=== PATIENT | male | born 1990 | race Caucasian/White ===

== ENCOUNTER 2020-12-07 17:25 | Emergency (ER) | payer SELFPAY ==
[2020-12-07 17:36] VITALS: BP 114/80; PULSE 91; RESP 18; TEMP 36.7; O2SAT 98; BMI 29.5
--- NOTE | 2020-12-07 17:40 | ED_ITS ---
HPI - Extremity Injury (Upper) General: Chief Complaint: Wound/Laceration Stated Complaint: HAND AND FINGER LAC Time Seen by Provider: 12/07/20 17:40 History of Present Illness: HPI narrative: 30-year-old male patient comes in today with injury to the right hand. Patient reports that him and a friend was moving some furniture and he slipped causing him to fall forward and put his hand through a window. Patient has some lacerations to the dorsal hand. Pat ient has good range of motion of the hand. Patient reports has tetanus shot is up-to-date. Patient denies any other concerns or issues. Review of Systems General: Reports: 10 or more systems reviewed and unremarkable except in HPI and below Skin/Breast: Reports: other (laceration right hand) Physical Exam Const: COMMON NORMALS: no acute distress and patient oriented x3 GENERAL APPEARANCE: cooperative HENMT: COMMON NORMALS: normocephalic and Normal external nose present HEAD & SCALP: normal to inspection and normocephalic NOSE: Normal external nose present Eye: GENERAL EYE: appearance normal, both eyes and all related structures Neck/C-Spine: COMMON NORMALS: full ROM Lymph: LYMPHATIC: no lymphadenopathy noted Chest: COMMONS NORMALS: normal inspection of the chest Resp: COMMON NORMALS: normal respiratory effort EFFORT & INSPECTION: Yes able to speak in complete sentences Cardio: COMMON NORMALS: regular rate and regular rhythm RATE: regular rate RHYTHM: regular rhythm GI: COMMON NORMALS: non-tender Extremity: NARRATIVE EXTREMITY EXAM: lacerations right hand Neuro: COMMON NORMALS: patient oriented x3 and moves all extremities Psych: COMMON NORMALS: mental status grossly normal and cooperative Skin: NARRATIVE SKIN EXAM: 3 cm laceration right dorsal hand, multiple superficial lacerations to index, middle, and ring finger Procedures Laceration Laceration 1: Site: hand Side (If applicable): right Size (cm): 3 Description: linear Depth: simple, single layer Local Anesthetic: lidocaine 1% and with epi Amount of anesthesia used (mL): 3 Pre-repair: wound explored and irrigated extensively Skin layer closed with: nylon Size (cm): 5-0 Number of sutures: 3 Technique: horizontal mattress Course Vital Signs: Vital signs: Vital Signs Temperature 98.0 F 12/07/20 17:36 Pulse Rate 91 12/07/20 17:36 Respiratory Rate 18 12/07/20 17:36 Blood Pressure 114/80 12/07/20 17:36 Pulse Oximetry 98 12/07/20 17:36 MDM - Extremity Injury (Upper) MDM Narrative: Medical decision making narrative: Patient comes in for injury to the right hand. On exam patient has several superficial lacerations to the fingers of the hand and a more significant laceration to the dorsal hand. Examination of the wound indicated no foreign body. Patient had good range of motion of the hand without any deficits in the tendons. Distal sensation and cap refill was intact. Differential diagnosis is to consider was laceration, tendon injury, foreign body, need for prophylaxis tetanus. Patient's tetanus vaccine was up-to-date. Wound was closed with 3 mattress sutures with well approximation. X-ray was performed indicating no foreign body or bony injury. Discussed post procedure care with patient with recommendations for treatment and follow-up. Patient reported understanding and agreed to plan. Discharge Plan Discharge Patient Disposition: Home Clinical Impression: Laceration of right hand Qualifiers: Encounter type: initial encounter Foreign body presence: without foreign body Qualified Code(s): S61.411A - Laceration without foreign body of right hand, initial encounter Condition: Stable Prescriptions: New ibuprofen 800 mg tablet 800 mg PO Q8H PRN (Reason: pain) Qty: 14 RF: 0 cephalexin 500 mg capsule 500 mg PO BID 7 Days Qty: 14 RF: 0 Discharge Orders: Discharge ED (Routine); Ordered 12/07/20 Ordered By: Bran Velasquez Discharge Diet: Usual diet Discharge Activity: Increase activity as tolerated Patient Instructions: Suture Care (ED), Opioid Safety Activity Restrictions/Additional Instructions: Keep wound clean and dry. It is very important to keep the wound is clean and dry as possible for the next 2 days. After that you can gently wash the area with mild soap and water and leave it open to air. If you going to be working in the real dirty environment it is recommended to cover the wound though. Sutures should come out in 7 to 10 days. Follow-up with primary care or return to the ER as needed. 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
--- NOTE | 2020-12-07 17:44 | XRR_ITS ---
PROCEDURE INFORMATION: Exam: XR Right Hand Exam date and time: 12/07/2020 5:44 PM Age: 30 years old Clinical indication: Pain; Hand; Right; Additional info: Injury, R/O fb TECHNIQUE: Imaging protocol: XR Right hand. Views: 3 or more views. COMPARISON: No relevant prior studies available. FINDINGS: Bones/joints: Normal. Soft tissues: Normal. XR/XR hand RT min 3V* [id number] IMPRESSION: No acute findings.
--- NOTE | 2020-12-07 17:45 | PC.NURSE ---
soaked right hand in NS and betadine for 15 minutes
[2020-12-07] MEDS: ibuprofen 800 mg tablet PO (18:48)
--- NOTE | 2020-12-07 18:49 | PC.NURSE ---
after laceration repair I applied simple bandaids to superficial lacerations. I applied non stick telfa to top of hand covered with hamilton and coban.
== END 2020-12-07 18:56 | disposition home or self-care (01) ==
PROVIDERS: Emergency Provider Nurse Practitioner Family
DX: S61.411A Laceration without foreign body of right hand, initial encounter (principal); S61.211A Laceration without foreign body of left index finger without damage to nail, initial encounter; S61.212A Laceration without foreign body of right middle finger without damage to nail, initial encounter; S61.214A Laceration without foreign body of right ring finger without damage to nail, initial encounter; W01.110A Fall on same level from slipping, tripping and stumbling with subsequent striking against sharp glass, initial encounter
CPT/HCPCS: 12002; 73130; 99283

== ENCOUNTER 2023-04-13 23:26 | Emergency (ER) | payer MEDICAID, SELFPAY ==
[2023-04-13 23:28] VITALS: BP 126/80; PULSE 116; RESP 18; TEMP 36.7; O2SAT 97
--- NOTE | 2023-04-13 23:50 | ED_ITS ---
HPI - Nausea/Vomiting/Diarrhea 2 General: Chief complaint: Nausea/Vomiting/Diarrhea Stated complaint: vomiting Time Seen by Provider: 04/13/23 23:35 History of Present Illness: 32-year-old male complaining of nausea v omiting and diarrhea. This started yesterday. He took some of his girlfriends nausea medication, but is sure he threw it up. Generalized abdominal fullness. No blood in the vomitus or stool. Associated nausea: Yes Associated symtoms: Reports nausea; Denies chest pain Review of Systems 2 Const: Reports: chills; Denies: fever(s) Card: Denies: chest pain Resp: Denies: dyspnea GI: Reports: abdominal pain, nausea, vomiting, diarrhea and GI cramping Physical Exam 2 Const: COMMON NORMALS: no acute distress GENERAL APPEARANCE: cooperative; not ill appearing and not frail appearing HENMT: COMMON NORMALS: normocephalic, atraumatic and Normal external nose present HEAD & SCALP: normocephalic and atraumatic FACE & SINUS: normal facial exam and face symmetric NOSE: Normal external nose present Eye: COMMON NORMALS: Equal, round and reactive pupils present and EOMs intact bilaterally PUPIL: Yes Equal, round and reactive pupils present Neck/C-Spine: GENERAL: Yes trachea midline Chest: CHEST: Yes Symmetrical chest wall rise Resp: COMMON NORMALS: normal respiratory effort, No retractions, No use of accessory muscles and clear to auscultation bilaterally AUSCULTATION: clear to auscultation bilaterally Cardio: COMMON NORMALS: regular rate and regular rhythm RATE: regular rate RHYTHM: regular rhythm GI: COMMON NORMALS: Normal to inspection, nondistended, normoactive bowel sounds present Extremity: COMMON NORMALS: no pedal edema Neuro: CHRISTINE COMA SCALE: document GCS findings Christine coma scale eye opening: Spontaneous Christine coma scale verbal response: Orientated [place] coma scale motor response: Obey commands Christine coma scale total score: 15 S ENSORY EXAM: Yes extremities (intact) Psych: COMMON NORMALS: speech normal SPEECH: Yes normal speech Skin: COMMON NORMALS: no rashes or lesions noted GENERAL SKIN EXAM: no rashes or lesions noted Course 2 Vital Signs: Vital signs: Vital Signs Temperature 98.0 F 04/13/23 23:28 Pulse Rate 77 04/14/23 02:04 Respiratory Rate 18 04/13/23 23:28 Blood Pressure 113/71 04/14/23 02:04 Pulse Oximetry 97 04/14/23 02:04 Oxygen Delivery Me thod Room Air 04/14/23 01:00 MDM - Nausea/Vomiting/Diarrhea Medical Decision Making Vital signs are stable. White blood cell count is 13, with a normal differential. Creatinine is 1.3. Otherwise, BMP is normal. Liver enzymes are nonremarkable. CRP is 19. Urinalysis is negative. Urine drug screen is positive for amphetamines and THC. KUB shows gastroenteritis pattern. Nonobstructive. Improved after IV fluid and Zofran here. He will be allowed home. Lab Data 04/13/23 23:53 04/13/23 23:53 Radiology Impressions KUB X-Ray 04/14/23 00:46 IMPRESSION: Dilated air-filled loops of small bowel in the left upper quadrant and right abdomen concerning for small bowel obstruction versus ileus. This can be further assessed with an abdominal CT. Laboratory Results WBC 13.22 10^3/uL (3.29-11.43) H 04/13/23 23:53 RBC 5.79 10^6/uL (3.85-5.65) H 04/13/23 23:53 Hgb 15.80 g/dL (11.27-16.99) 04/13/23 23:53 Hct 49.4 % (37-53) 04/13/23 23:53 MCV 85.3 fl (82-101) 04/13/23 23:53 MCH 27.3 pg (27-33) 04/13/23 23:53 MCHC 32.0 g/dL (30-55) 04/13/23 23:53 RDW 14.1 % (12.1-15.1) 04/13/23 23:53 Plt Count 390 10^3/cmm (157-399) 04/13/23 23:53 MPV 10.1 fL (7.4-10.4) 04/13/23 23:53 Neut % (Auto) 68.3 % 04/13/23 23:53 Lymph % (Auto) 17.0 % 04/13/23 23:53 [place] % (Auto) 9.8 % 04/13/23 23:53 Eos % (Auto) 4.5 % 04/13/23 23:53 Baso % (Auto) 0.2 % 04/13/23 23:53 Neut # (Auto) 9.03 10^3/uL (1.8-7.7) H 04/13/23 23:53 Lymph # (Auto) 2.3 10^3/uL (0.8-4.8) 04/13/23 23:53 [place] # (Auto) 1.3 10^3/uL (0.2-0.9) H 04/13/23 23:53 Eos # (Auto) 0.6 10^3/uL (0.0-0.8) 04/13/23 23:53 Baso # (Auto) 0.0 10^3/uL (0.0-0.1) 04/13/23 23:53 Nucleated RBC % (auto) 0 % 04/13/23 23:53 Nucleated RBCs # 0.0 /100WBC 04/13/23 23:53 Sodium 139 mmol/L (136-145) 04/13/23 23:53 Potassium 4.1 mmol/L (3.5-5.1) 04/13/23 23:53 Chloride 101 mmol/L (98-107) 04/13/23 23:53 Carbon Dioxide 24 mmol/L (22-29) 04/13/23 23:53 Anion Gap 18.1 (5-19) 04/13/23 23:53 BUN 16 mg/dL (6-20) 04/13/23 23:53 Creatinine 1.3 mg/dL (0.7-1.2) H 04/13/23 23:53 GFR Calculation 64.4 mL/min (90-130) L 04/13/23 23:53 Glucose 107 mg/dL (65-115) 04/13/23 23:53 Calculated Osmolality 290 mOsm/kg (285-295) 04/13/23 23:53 Calcium 9.6 mg/dL (8.5-10.5) 04/13/23 23:53 Total Bilirubin 0.5 mg/dL (0.15-1.2) 04/13/23 23:53 AST 16 U/L (0-40) 04/13/23 23:53 ALT 22 U/L (0-41) 04/13/23 23:53 Alkaline Phosphatase 77 U/L (40-130) 04/13/23 23:53 C-Reactive Protein 19.1 mg/L (0.0-4.9) H 04/13/23 23:53 Total Protein 8.5 g/dL (6.6-8.7) 04/13/23 23:53 Albumin 4.6 g/dL (3.5-5.2) 04/13/23 23:53 Globulin 3.9 g/dL (1.3-4.6) 04/13/23 23:53 Lipase 14 U/L (13-60) 04/13/23 23:53 Urine Color Yellow (Yellow) 04/14/23 00:09 Urine Appearance Clear (CLEAR) 04/14/23 00:09 Urine pH 5 (5-7) 04/14/23 00:09 Ur Specific [place] 1.025 (1.005-1.030) 04/14/23 00:09 Urine Protein Neg (Negative) 04/14/23 00:09 Urine Glucose (UA) Norm (Normal) 04/14/23 00:09 Urine Ketones Negative (Negative) 04/14/23 00:09 Urine Blood Neg (Negative) 04/14/23 00:09 Urine Nitrate Negative (Negative) 04/14/23 00:09 Urine Bilirubin Neg (Negative) 04/14/23 00:09 Urine Urobilinogen Norm mg/dL (Negative) 04/14/23 00:09 Ur Leukocyte Esterase Negative (Negative) 04/14/23 00:09 Urine Opiates Screen Negative ng/mL (Negative) 04/14/23 00:09 Ur Barbiturates Screen Negative ng/mL (Negative) 04/14/23 00:09 Ur Phencyclidine Scrn Negative ng/mL (Negative) 04/14/23 00:09 Ur Amphetamines Screen Positive ng/mL (Negative) H 04/14/23 00:09 U Benzodiazepines Scrn Negative ng/mL (Negative) 04/14/23 00:09 Urine Cocaine Screen Negative ng/mL (Negative) 04/14/23 00:09 U Marijuana (THC) Screen Positive ng/mL (Negative) H 04/14/23 00:09 XR interpretation done by ED provider, pending radiology final review Discharge Plan Discharge Patient Disposition: Home Clinical Impression: Gastroenteritis Condition: Stable Prescriptions: New ketorolac 10 mg tablet 10 mg PO TID PRN (Reason: pain) Qty: 10 0RF ondansetron 4 mg tablet,disintegrating 4 mg PO Q6H PRN (Reason: nausea and vomiting) Qty: 14 0RF Discontinued ibuprofen 800 mg tablet 800 mg PO Q8H PRN (Reason: pain) Qty: 14 0RF Discharge Orders: Discharge ED (Routine); Ordered 04/14/23 Ordered By: Raudel Parker Patient Instructions: Gastroenteritis (ED), Opioid Safety, Pain Management Activity Restrictions/Additional Instructions: Follow a liquid diet for the next 24 hours. Take nausea medication every 4 hours while awake for the first 24 hours, then as needed following. Return for fever greater than 100, worsening pain despite treatment, worsening vomiting despite treatment, other concerning symptoms. See your doctor next week. 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
[2023-04-14 00:01] LABS: Basophils % 0.2 %; Eosinophils # 0.6 10^3/uL (0.0-0.8); Eosinophils % 4.5 %; Hematocrit 49.4 % (37-53); Lymphocytes # 2.3 10^3/uL (0.8-4.8); Mean Corpuscular Hemoglobin 27.3 pg (27-33); Mean Corpuscular Volume 85.3 fl (82-101); Mean Platelet Volume 10.1 fL (7.4-10.4); Monocytes # 1.3 10^3/uL (0.2-0.9); Monocytes % 9.8 %; Neutrophils # 9.03 10^3/uL (1.8-7.7); Neutrophils % 68.3 %; Nucleated Red Blood Cells % 0 %; Platelet Count 390 10^3/cmm (157-399); Red Blood Count 5.79 10^6/uL (3.85-5.65); Red Cell Distribution Width 14.1 % (12.1-15.1); White Blood Count 13.22 10^3/uL (3.29-11.43)
[2023-04-14] MEDS: sodium chloride 0.9% 1,000 ML 999 ML IV ×2 (00:02→01:13)
[2023-04-14] MEDS: ondansetron 2 mg/ML SDV 2 mL 4 MG IVP (00:03)
[2023-04-14] MEDS: ketorolac 30 mg/mL INJ 15 MG IVP (00:06)
[2023-04-14 00:19] LABS: Add Urine Microscopic? NO; Charge for UA Resulting for Rev
[2023-04-14 00:29] LABS: Alanine Aminotransferase 22 U/L (0-41); Albumin Level 4.6 g/dL (3.5-5.2); Alkaline Phosphatase 77 U/L (40-130); Anion Gap 18.1 (5-19); Aspartate Amino Transferase 16 U/L (0-40); Blood Urea Nitrogen 16 mg/dL (6-20); C Reactive Protein 19.1 mg/L (0.0-4.9); Calcium 9.6 mg/dL (8.5-10.5); Carbon Dioxide 24 mmol/L (22-29); Chloride 101 mmol/L (98-107); Globulin 3.9 g/dL (1.3-4.6); Glomerular Filtration Rate 64.4 mL/min (90-130); Glucose 107 mg/dL (65-115); Lipase 14 U/L (13-60); Osmolality Calculated 290 mOsm/kg (285-295); Potassium 4.1 mmol/L (3.5-5.1); Sodium 139 mmol/L (136-145); Total Bilirubin 0.5 mg/dL (0.15-1.2); Total Protein 8.5 g/dL (6.6-8.7)
[2023-04-14 00:30] VITALS: BP 127/77; PULSE 78; O2SAT 94
[2023-04-14 00:36] LABS: Bilirubin Urine Neg (Negative); Blood Urine Neg (Negative); Glucose Urine UA Norm (Normal); Ketones Urine Negative (Negative); Leukocyte Esterase Urine Negative (Negative); Nitrate Urine Negative (Negative); Protein Urine Neg (Negative); Specific Gravity, Urine 1.025 (1.005-1.030); Urine Appearance Clear (CLEAR); Urine Color Yellow (Yellow); Urobilinogen Urine Norm (Negative); pH Urine 5 (5-7)
[2023-04-14 00:45] LABS: Amphetamines Screen Urine Positive (Negative); Barbiturates Screen Urine Negative (Negative); Benzodiazepines Screen Urine Negative (Negative); Cocaine Screen Urine Negative (Negative); Opiate Screen Urine Negative (Negative); PCP Screen Urine Negative (Negative); THC Screen Urine Positive (Negative)
--- NOTE | 2023-04-14 00:46 | XRR_ITS ---
PROCEDURE INFORMATION: Exam: XR Abdomen Exam date and time: 04/14/2023 12:49 AM Age: 32 years old Clinical indication: Nausea and vomiting; Abdominal pain; Generalized; Prior surgery; Surgery date: 6+ months; Surgery type: Gb. Appy; Patient HX: Diffuse abd pain with n/v/d. TECHNIQUE: Imaging protocol: Radiologic exam of the abdomen. Views: Frontal supine view of the abdomen. 1 View. COMPARISON: No relevant prior studies available. FINDINGS: Gastrointestinal tract: Dilated air-filled loops of small bowel in the left upper quadrant and right abdomen concerning for small bowel obstruction versus ileus. This can be further assessed with an abdominal CT. Bones/joints: Unremarkable. XR/XR KUB portable [id number] IMPRESSION: Dilated air-filled loops of small bowel in the left upper quadrant and right abdomen concerning for small bowel obstruction versus ileus. This can be further assessed with an abdominal CT.
[2023-04-14 01:00] VITALS: BP 117/73; PULSE 70; O2SAT 95
[2023-04-14 01:30] VITALS: BP 114/71
[2023-04-14 02:04] VITALS: BP 113/71; PULSE 77; O2SAT 97
== END 2023-04-14 02:04 | disposition home or self-care (01) ==
PROVIDERS: Emergency Provider Emergency Medicine
DX: K52.9 Noninfective gastroenteritis and colitis, unspecified (principal)
CPT/HCPCS: 36415; 74018; 80053; 80306; 81003; 83690; 85025; 86140; 96361; 96374; 96375; 99284; J1885; J2405; J7030

== ENCOUNTER 2024-11-01 16:40 | Emergency (ER) | payer SELFPAY ==
--- OUTSIDE RECORDS SUMMARY | 2021-01-05 04:00 | XMS_ITS | Continuity of Care Document ---
Author Organization [facility] Address [id number] [address] Phone Care Team Providers Care Fisheries Specialist Name Role Phone Dwayne Orta DDS Unavailable Unavailabl e Allergies, Adverse Reactions, Alerts Substance Reaction Status Criticality No Known Allergies Active No Inform ation Medications Medication Instructions Dosage Effective Dates (start - stop) Status Comments clonazepam 1 mg tablet Take 1 (one) tablet 1 (one) hour prior to procedure. - Active ibuprofen 800 mg tablet take 1 tablet by oral route 3 times every day with food 800 MG - Active Anti-inflammator y caused by Oral Surgery, Do not used more than 3000mg per day. Percocet 5 mg-325 mg tablet take 1 (one) tablet by oral route 1 (one) hour prior to procedure. Take 1 (one) tab q6h PRN pain after surgery. - Active Peridex 0.12 % mouthwash place 15 milliliter by mucous membrane route 2 times every day in the mouth (after meals), swish in mouth for 30 seconds then spit out 15.00 milliliter - Active Antimicrobial mouth rinse after Oral Surgery. start using after 2nd day of surgery. Procedures Procedure Date Limited Oral Evaluation Problem Focused EDR Approval Note Advance Directives Directive Yes / No Effective Date File Name No Information Encounters Encounter Description Practice Location Reason(s) For Visit Diagnoses Date Provider Providers Copied on Encounter [facility], [id number] [facility], [place], [place], [id number], [place] tel:[phone] [facility] Encounter for dental exam and cleaning w/o abnormal findings Marivel Rice. [address] [place] [address], [address], . tel:[phone] Referring Provider: Dwayne Orta, [address] [place] [address], [address]. tel:[phone] Family History Family Member Type Diagnosis Age At Onset No Information Payers Payer name Insurance type Covered green party ID philomena adame(s) D [employer] [id number] Social History Type Description Quantity Date Captured Comments Alcohol Use Details Unknown Caffeine Use Details Unknown Tobacco Use Status No Information Smoking Status No Information Sex Male Chief Complaint And Reason For Visit No Information Reason For Referral Reason For Referral No Information History Of Present Illness Encounter Date Complaint History Of Prese nt Illness No Information Functional Status Date Functional Assessmen t No Information Instructions Date Instruction Additional Infor mation No Information Assessments Type Assessment Date No Information Patient Care Teams Name Effective Dates (start - stop) Status Members No Information
[2024-11-01 16:41] VITALS: BP 146/85; PULSE 58; RESP 16; TEMP 36.4; O2SAT 100; BMI 26.6
--- NOTE | 2024-11-01 16:54 | PC.NURSE ---
Patient refused IV line and iv fluids. States that he doesn't really like needles and doesn't do well with them. Dr Espitia notified.
--- NOTE | 2024-11-01 16:56 | ED_ITS ---
HPI - Syncope 2 General: Chief Complaint: Syncope Stated Complaint: syncope; abd pain Time Seen by Provider: 11/01/24 16:44 History of Present Illness: 34-year-old male presents to the emergen cy room had a orthostatic episode for which he syncopized. He is complaining of little abdominal pain this morning. He has not had any medic easy melena hematemesis or coffee-ground emesis. Previous had a cholecystectomy and appendectomy. Patient has remote history of drug use has been sober for some time denies any recent use. Associated symptoms: Deny abdominal pain, chest pain or fever(s) Related Data Previous Rx's ?Medication ?Instructions ?Recorded ketorolac 10 mg tablet 10 mg PO TID PRN pain #10 ta bs 04/14/23 ondansetron 4 mg disintegrating 4 mg PO Q6H PRN nausea and 04/14/23 tablet vomiting #14 tabs promethazine 25 mg tablet 25 mg PO Q6H PRN nausea and 11/01/24 vomiting #20 tabs Allergies Allergy/AdvReac Type Severity Reaction Status Date / Time No Known Allergies Allergy Verified 04/13/23 23:33 Review of Systems 2 Const: Denies: fever(s) or chills Card: Denies: chest pain Resp: Denies: dyspnea GI: Denies: abdominal pain : Denies: dysuria, urinary frequency or urinary urgency Musc: Denies: neck pain or back pain Skin/Breast: Denies: rash Physical Exam 2 Const: COMMON NORMALS: no acute distress GENERAL APPEARANCE: cooperative and comfortable ORIENTATION/CONSCIOUSNESS: Yes awake, Yes oriented to person, Yes oriented to place and Yes oriented to time HENMT: COMMON NORMALS: normocephalic, atraumatic and hearing grossly normal bilaterally HEAD & SCALP: normocephalic and atraumatic Resp: COMMON NORMALS: normal respiratory effort, No retractions, No use of accessory muscles and clear to auscultation bilaterally AUSCULTATION: clear to auscultation bilaterally Cardio: COMMON NORMALS: regular rate, regular rhythm and No murmurs present (Cardio) RATE: regular rate RHYTHM: regular rhythm GI: COMMON NORMALS: Soft to palpation and No hepatosplenomegaly present A USCULTATION: Yes normoactive bowel sounds PALPATION: Yes Soft to palpation, No Tenderness to palpation present (GI), No Guarding due to palpation present (GI) and Yes No hepatosplenomegaly present Extremity: COMMON NORMALS: normal to inspection, capillary refill normal, no clubbing, cyanosis or edema, no calf tenderness and no pedal edema Neuro: SENSORIUM/ORIENTATION: Yes oriented to person, Yes oriented to place and Yes oriented to time Skin: COMMON NORMALS: no rashes or lesions noted GENERAL SKIN EXAM: no rashes or lesions noted Course 2 Vital Signs: Vital signs: Vital Signs Temperature 97.5 F L 11/01/24 16:41 Pulse Rate 64 11/01/24 18:18 Respiratory Rate 22 H 11/01/24 17:39 Blood Pressure 152/78 11/01/24 18:18 Pulse Oximetry 100 11/01/24 18:18 Oxygen Delivery Me thod Room Air 11/01/24 17:39 MDM - Syncope Medical Decision Making Improved after IV fluids in case episode was due to orthostasis from mild dehydration liver functions are elevated this does need to be followed up has had this in the past. There is no evidence of bile duct obstruction at this time. His lipase was normal. Should follow-up with his primary care doctor repeat liver functions in the next 2 to 3 weeks sooner if he has any further problems Medical Records I reviewed the patient's medical records. Lab Data I reviewed the patient's lab results. 11/01/24 16:52 11/01/24 16:52 Laboratory Results WBC 8.28 10^3/uL (3.29-11.43) 11/01/24 16:52 RBC 5.18 10^6/uL (3.85-5.65) 11/01/24 16:52 Hgb 14.70 g/dL (11.27-16.99) 11/01/24 16:52 Hct 46.4 % (37-53) 11/01/24 16:52 MCV 89.6 fl (82-101) 11/01/24 16:52 MCH 28.4 pg (27-33) 11/01/24 16:52 MCHC 31.7 g/dL (30-55) 11/01/24 16:52 RDW 14.5 % (12.1-15.1) 11/01/24 16:52 Plt Count 431 10^3/cmm (157-399) H 11/01/24 16:52 MPV 10.2 fL (7.4-10.4) 11/01/24 16:52 Neut % (Auto) 66.5 % 11/01/24 16:52 Lymph % (Auto) 24.0 % 11/01/24 16:52 [place] % (Auto) 7.9 % 11/01/24 16:52 Eos % (Auto) 0.7 % 11/01/24 16:52 Baso % (Auto) 0.7 % 11/01/24 16:52 Neut # (Auto) 5.50 10^3/uL (1.8-7.7) 11/01/24 16:52 Lymph # (Auto) 2.0 10^3/uL (0.8-4.8) 11/01/24 16:52 [place] # (Auto) 0.7 10^3/uL (0.2-0.9) 11/01/24 16:52 Eos # (Auto) 0.1 10^3/uL (0.0-0.8) 11/01/24 16:52 Baso # (Auto) 0.1 10^3/uL (0.0-0.1) 11/01/24 16:52 Nucleated RBC % (auto) 0 % 11/01/24 16:52 Nucleated RBCs # 0.0 /100WBC 11/01/24 16:52 Sodium 138 mmol/L (136-145) 11/01/24 16:52 Potassium 3.6 mmol/L (3.5-5.1) 11/01/24 16:52 Chloride 102 mmol/L (98-107) 11/01/24 16:52 Carbon Dioxide 20 mmol/L (22-29) L 11/01/24 16:52 Anion Gap 19.6 (5-19) H 11/01/24 16:52 BUN 20 mg/dL (6-20) 11/01/24 16:52 Creatinine 1.0 mg/dL (0.7-1.2) 11/01/24 16:52 GFR Calculation 86.1 mL/min (90-130) L 11/01/24 16:52 Glucose 112 mg/dL (65-115) 11/01/24 16:52 Calculated Osmolality 289 mOsm/kg (285-295) 11/01/24 16:52 Calcium 9.3 mg/dL (8.5-10.5) 11/01/24 16:52 Total Bilirubin 1.2 mg/dL (0.15-1.2) 11/01/24 16:52 AST 234 U/L (0-40) H 11/01/24 16:52 ALT 188 U/L (0-41) H 11/01/24 16:52 Alkaline Phosphatase 75 U/L (40-130) 11/01/24 16:52 Total Protein 7.5 g/dL (6.6-8.7) 11/01/24 16:52 Albumin 4.3 g/dL (3.5-5.2) 11/01/24 16:52 Globulin 3.2 g/dL (1.3-4.6) 11/01/24 16:52 Lipase 13 U/L (13-60) 11/01/24 16:52 Urine Color Dark yellow (Yellow) A 11/01/24 17:12 Urine Appearance Clear (CLEAR) 11/01/24 17:12 Urine pH 5.0 (5-7) 11/01/24 17:12 Ur Specific [place] 1.078 (1.005-1.030) H 11/01/24 17:12 Urine Protein 1+ (Negative) A 11/01/24 17:12 Urine Glucose (UA) Negative (Normal) 11/01/24 17:12 Urine Ketones 2+ (Negative) H 11/01/24 17:12 Urine Blood Negative (Negative) 11/01/24 17:12 Urine Nitrate Negative (Negative) 11/01/24 17:12 Urine Bilirubin 1+ (Negative) H 11/01/24 17:12 Urine Urobilinogen 1.0 mg/dL (Negative) 11/01/24 17:12 Ur Leukocyte Esterase Negative (Negative) 11/01/24 17:12 Urine RBC 0-2 /hpf (0-2) 11/01/24 17:12 Urine WBC 0-5 /hpf (0-5) 11/01/24 17:12 Ur Squamous Epith Cells 0-5 /hpf (0-5) 11/01/24 17:12 Amorphous Sediment Not Reportable 11/01/24 17:12 Urine Bacteria None seen /hpf (NONE) 11/01/24 17:12 Hyaline Casts 0.81 /lpf 11/01/24 17:12 All radiology interpretation(s) finalized by discharge Discharge Plan Discharge Patient Disposition: Home Clinical Impression: Syncope due to orthostatic hypotension, Dehydration, Elevated LFTs Condition: Stable Prescriptions: New promethazine 25 mg tablet 25 mg PO Q6H PRN (Reason: nausea and vomiting) Qty: 20 0RF No Action ketorolac 10 mg tablet 10 mg PO TID PRN (Reason: pain) Qty: 10 0RF ondansetron 4 mg tablet,disintegrating 4 mg PO Q6H PRN (Reason: nausea and vomiting) Qty: 14 0RF Discharge Orders: Discharge ED (Routine); Ordered 11/01/24 Ordered By: Rylan Espitia Discharge Diet: Usual diet Discharge Activity: Resume usual activity Patient Instructions: Opioid Safety, Pain Management, Patient Portal & Joel Instructions Activity Restrictions/Additional Instructions: Thank you for choosing [facility] for your healthcare needs today. It is very important that you follow up as instructed or that you return to the Emergency Department should you have concerns or if your condition changes or worsens in any way. You were seen in the emergency room with a complaint of passing out. Your liver enzymes are elevated this should be rechecked sometime within the next 2 weeks. Your white count is normal. You did show signs of moderate dehydration you are given IV fluids. Recommend pushing oral fluids you are also given nausea medications we did run a tick panel on you today this will take several days to result. 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
[2024-11-01 16:58] LABS: Hematocrit 46.4 % (37-53); Hemoglobin 14.70 g/dL (11.27-16.99); Mean Corpuscular HGB Conc 31.7 g/dL (30-55); Mean Corpuscular Hemoglobin 28.4 pg (27-33); Mean Corpuscular Volume 89.6 fl (82-101); Nucleated Red Blood Cells % 0 %; Platelet Count 431 10^3/cmm (157-399); Red Blood Count 5.18 10^6/uL (3.85-5.65); White Blood Count 8.28 10^3/uL (3.29-11.43)
--- NOTE | 2024-11-01 17:13 | PC.NURSE ---
Patient changed mind on IV fluids after speaking with Dr Cavazos. 20g iv cath to the left ac/ first attempt and fluids running. Pt states that he is an iv drug user but did not use today.
[2024-11-01 17:21] LABS: Alanine Aminotransferase 188 U/L (0-41); Albumin Level 4.3 g/dL (3.5-5.2); Alkaline Phosphatase 75 U/L (40-130); Anion Gap 19.6 (5-19); Aspartate Amino Transferase 234 U/L (0-40); Blood Urea Nitrogen 20 mg/dL (6-20); Calcium 9.3 mg/dL (8.5-10.5); Carbon Dioxide 20 mmol/L (22-29); Chloride 102 mmol/L (98-107); Creatinine Clr Calc Pharmacy 111.5754; Globulin 3.2 g/dL (1.3-4.6); Glucose 112 mg/dL (65-115); Lipase 13 U/L (13-60); Osmolality Calculated 289 mOsm/kg (285-295); Potassium 3.6 mmol/L (3.5-5.1); Sodium 138 mmol/L (136-145); Total Protein 7.5 g/dL (6.6-8.7)
[2024-11-01 17:21] LABS: Glucose Urine UA Negative (Normal); Nitrate Urine Negative (Negative)
[2024-11-01] MEDS: ondansetron 2 mg/ML SDV 2 mL 4 MG IVP (17:21)
[2024-11-01 17:26] LABS: Add Urine Microscopic? YES; Specific Gravity, Urine 1.078 (1.005-1.030)
[2024-11-01 17:39] VITALS: BP 153/80; PULSE 64; RESP 22; O2SAT 100
[2024-11-01 18:18] VITALS: BP 152/78; PULSE 64; O2SAT 100
== END 2024-11-01 18:20 | disposition home or self-care (01) ==
PROVIDERS: Emergency Provider Family Medicine
DX: I95.1 Orthostatic hypotension (principal); E86.0 Dehydration; R94.5 Abnormal results of liver function studies
CPT/HCPCS: 36415; 80053; 81001; 83690; 85025; 96361; 96374; 99284; J2405; J7030